=== PATIENT | male | born 1960 | race Caucasian/White ===

== ENCOUNTER 2023-08-23 18:30 | Emergency (ER) | payer BC, SELFPAY ==
[2023-08-23 18:38] VITALS: BP 146/95; PULSE 65; RESP 16; TEMP 36.8; O2SAT 95; BMI 29.5
--- NOTE | 2023-08-23 19:15 | ED_ITS ---
HPI - Wound/Laceration General Chief Complaint: Laceration/Wound Stated Complaint: L knee chainsaw wound Time Seen by Provider: 08/23/23 18:32 History of Present Illness HPI narrative: This 63-year-old male comes in with a laceration to his left knee that occurred just prior to arrival. He was using a chain saw and the chainsaw kicked back and caught his jeans which pulled it into his leg. He has a irregular laceration about 6 cm long over the left patella. He states that his tetanus was last updated 8 years ago. Related Data Home Medications Medication Instructions Recorded Confirmed nortriptyline 10 mg capsule 40 mg PO QPM 08/23/23 08/23/23 Allergies Allergy/AdvReac Type Severity Reaction Status Date / Time No Known Drug Allergies Allergy Verified 08/23/23 18:43 Review of Systems Status of ROS: Reports: 10 or more systems reviewed and unremarkable except as noted in History and below Narrative: Constitutional: No fevers, no weight gain or loss. Eyes: No discharge. No vision changes. HENT: No congestion, no sore throat, no ear pain. Cardiovascular: No chest pain, no palpitations. Respiratory: No shortness of breath, no wheezes, no cough. Gastrointestinal: No abdominal pain, no vomiting, no diarrhea. Genitourinary: No dysuria, no hematuria. Musculoskeletal: Normal range of motion. Skin: No rashes, no pruritis. Neurological: No dizziness, weakness, sensory change, speech change. Endo/Heme/Allergies: No bruising or bleeding. No polydipsia. Pysch: no suicidality, no anxiety, no insomnia. All other systems reviewed and are negative. PFSH PFS Social History Smoking Status: Never smoker How often do you have a drink containing alcohol: 2-3 times a week How many standard drinks containing alcohol do you have on a typical day: 3 or 4 AUDIT-C Alcohol total score: 4 Non-prescribed substance use: denies use Exam Narrative: Exam Narrative: Constitutional: Well-developed, well-nourished, no acute distress. HEENT: Normocephalic, atraumatic. Neck: Normal range of motion. Nontender. Supple. Heart: Intact distal pulses. Lungs: No chest discomfort. No wheezes, rhonchi, or rales. Abdomen: Nontender. Back: Normal range of motion. Extremities: Normal range of motion. 6 cm irregular laceration of the left knee. The wound is not full thickness through the skin. When I attempt to spread the skin it does not open up in to the subcuticular area. Skin: Intact. No rash. Warm. No erythema or pallor. Neurologic: No altered sensation. No weakness. Alert and oriented. Psychiatric: No suicidality. No anxiety or depression. No insomnia. Nursing notes and vitals signs are reviewed. Const: Vital Signs, click to edit/add: Vital Signs - 24 hr 08/23/23 18:38 Temperature 98.2 F Pulse Rate [Right Pulse Oximeter] 65 Respiratory Rate 16 Blood Pressure [Le ft Upper Arm] 146/95 H Pulse Oximetry 95 Oxygen Delivery Me thod Room Air Course Vital Signs Vital signs: Initial Vital Signs Temperature 98.2 F 08/23/23 18:38 Temperature Source Temporal Artery Scan 08/23/23 18:38 Pulse Rate 65 08/23/23 18:38 Respiratory Rate 16 08/23/23 18:38 Blood Pressure 146/95 H 08/23/23 18:38 Blood Pressure Mean 112 H 08/23/23 18:38 Blood Pressure Position Semi-Fowlers 08/23/23 18:38 Pulse Oximetry 95 08/23/23 18:38 Oxygen Delivery Method Room Air 08/23/23 18:38 Vital Signs Temperature 98.2 F 08/23/23 18:38 Pulse Rate 65 08/23/23 18:38 Respiratory Rate 16 08/23/23 18:38 Blood Pressure 146/95 H 08/23/23 18:38 Pulse Oximetry 95 08/23/23 18:38 Oxygen Delivery Method Room Air 08/23/23 18:38 Temperature 98.2 F 08/23/23 18:38 Pulse Rate 65 08/23/23 18:38 Respiratory Rate 16 08/23/23 18:38 Blood Pressure 146/95 H 08/23/23 18:38 Pulse Oximetry 95 08/23/23 18:38 Oxygen Delivery Method Room Air 08/23/23 18:38 MDM - Wound/Laceration MDM Narrative Medical decision making narrative: This patient has a laceration over his left knee that is not a full-thickness injury. I discussed options for wound repair with the patient including suture and Dermabond. The patient elected to have Dermabond applied. This was done after cleansing the wound. A Band-Aid to is placed to further strength in the repair and protect it is recovery. The patient also received a tetanus vaccination. I advised the patient to avoid bending his left knee excessively as this can open the wound. Instructions regarding wound care are given also. Discharge Plan Discharge Clinical Impression: Laceration Patient Disposition: Home, Self-Care Condition: Stable Additional Instructions: Keep wound clean and dry. Avoid flexion of the left knee beyond 75-90 degrees to allow for the wound to heal over these next few days. Follow up with MD or return if worsening. Prescriptions: No Action nortriptyline 10 mg capsule 40 mg PO QPM Follow Up/Referrals: Hayes Rollins MD [Primary Care Provider] - Stand Alone Forms: Review[employer] Info Instructions
[2023-08-23] MEDS: TETANUS/DIPHTH/PERTUSSIS 0.5 ML SYRINGE IM (19:23)
== END 2023-08-23 19:30 | disposition home or self-care (01) ==
PROVIDERS: Emergency Provider Emergency Medicine Emergency Medical Services; PCP Family Medicine
DX: S81.012A Laceration without foreign body, left knee, initial encounter (principal); W29.3XXA Contact with powered garden and outdoor hand tools and machinery, initial encounter
CPT/HCPCS: 12002; 90471; 90715; 99283; 99284